=== PATIENT | female | born 1975 | race African-American/Black ===

== ENCOUNTER 2018-12-30 15:40 | Emergency (ER) | payer OTHER ==
[~2018-12-30] VITALS: Ht 170.2 cm; Wt 94.3 kg
[2018-12-30 17:25] VITALS: BP 139/74
== END 2018-12-30 17:34 | disposition home or self-care (01) ==
LOC: ER 15:46
DX: S09.8XXA Other specified injuries of head, initial encounter (principal); S19.80XA Other specified injuries of unspecified part of neck, initial encounter; I10 Essential (primary) hypertension; W22.8XXA Striking against or struck by other objects, initial encounter; Y93.89 Activity, other specified; Y92.89 Other specified places as the place of occurrence of the external cause; Y99.8 Other external cause status
CPT/HCPCS: Z7502